=== PATIENT | male | born 1975 | race Caucasian/White ===

== ENCOUNTER → 2017-03-31 | Outpatient (CLI) | payer OTHER ==
[~2017-03-31] MED LIST: PERCOCET 5/31 TABLET PO; SILVADENE20 GM TP
== END | disposition home or self-care (01) ==
LOC: CDC 09:06
DX: Z01.810 Encounter for preprocedural cardiovascular examination (principal); G56.01 Carpal tunnel syndrome, right upper limb; M79.641 Pain in right hand; R94.31 Abnormal electrocardiogram [ECG] [EKG]
CPT/HCPCS: 93000

== ENCOUNTER 2017-05-31 13:51 | Emergency (ER) | payer OTHER ==
[~2017-05-31] VITALS: Ht 180.3 cm; Wt 126.5 kg
[2017-05-31 14:20] LABS: MCH 30.8 PG (29.0-34.0); MCV 87.9 FL (86-99); PLATELET COUNT 181 K/uL (156-360); RBC DIS.WIDTH-CV 12.5 % (11.8-14.6); RBC DIS.WIDTH-SD 40.1 % (39-53); RED BLOOD COUNT 5.46 M/uL (4.00-5.50)
[2017-05-31 14:31] LABS: CHLORIDE 103 mEq/L (99-109)
[2017-05-31 14:32] LABS: SODIUM 139 mEq/L (136-147)
[2017-05-31 14:33] LABS: GLUCOSE 165 mg/dL (70-99)
[2017-05-31 14:35] LABS: ANION GAP 11 MEQ/L (2-14)
[2017-05-31 14:37] LABS: GFR ESTIMATE (CALCULATED) > 59 mL/min/ (58.99-99999)
[2017-05-31 14:38] LABS: UREA NITROGEN (BUN) 15 mg/dL (9-23)
[2017-05-31] MEDS ORDERED: FIORICET 50-301 EAC1 PO (16:57)
[2017-05-31 17:44] VITALS: BP 148/72
== END 2017-05-31 17:46 | disposition home or self-care (01) ==
LOC: EME 13:51
PROVIDERS: Nurse Practitioner Family
DX: H57.11 Ocular pain, right eye (principal); H11.30 Conjunctival hemorrhage, unspecified eye; R73.03 Prediabetes; K21.9 Gastro-esophageal reflux disease without esophagitis; F17.200 Nicotine dependence, unspecified, uncomplicated; Z88.8 Allergy status to other drugs, medicaments and biological substances
CPT/HCPCS: 70496; 70498; 80048; 85027